=== PATIENT | female | born 1990 | race Hispanic/Latino ===

== ENCOUNTER 2022-07-01 20:47 | Emergency (ER) | payer SELFPAY ==
[~2022-07-01] VITALS: Ht 162.6 cm; Wt 84.4 kg
[2022-07-01] MEDS ORDERED: AZITHROMYCIN 250 MG TAB PO ONE (21:45)
[2022-07-01] MEDS ORDERED: CEFTRIAXONE 500 MG VIAL IM ONE (21:45)
[2022-07-01] MEDS ORDERED: AZITHROMYCIN 250 MG TAB ONE (21:51)
[2022-07-01] MEDS ORDERED: CEFTRIAXONE 500 MG VIAL ONE (21:51)
[2022-07-01] MEDS ORDERED: VALTREX1000 MG PO (21:57)
[2022-07-01] MEDS ORDERED: DIFLUCAN150 MG PO (21:59)
== END 2022-07-01 22:14 | disposition home or self-care (01) ==
LOC: FSED 20:53
DX: B37.3 Candidiasis of vulva and vagina (principal); A60.00 Herpesviral infection of urogenital system, unspecified; E10.9 Type 1 diabetes mellitus without complications
CPT/HCPCS: 81003; 81025; 99283; J0696

== ENCOUNTER 2023-08-09 18:46 | Emergency (ER) | payer OTHER ==
[~2023-08-09] VITALS: Ht 162.6 cm; Wt 79.8 kg
[~2023-08-09 18:46] MED LIST: ATORVASTATIN CA20 MG PO; CORICIDIN HBP1 EAC3 PO; DIFLUCAN150 MG PO; GLYBURIDE5 MG PO; JANUVIA50 MG PO; LISINOPRIL5 MG PO; METFORMIN HCL500 M2 PO; VALTREX1000 MG PO
[2023-08-09] MEDS ORDERED: ONDANSETRON HCL INJ 2MG/ML 2ML 2 MG/ML VIAL IV STA (19:19)
[2023-08-09] MEDS ORDERED: SODIUM CHLORIDE 0.9% 1000ML 1,000 ML IV SCH (19:30)
[2023-08-09] MEDS ORDERED: ONDANSETRON HCL INJ 2MG/ML 2ML 2 MG/ML VIAL ONE (20:22)
[2023-08-09] MEDS ORDERED: SODIUM CHLORIDE 0.9% 1000ML 1,000 ML ONE (20:23)
[2023-08-09 20:39] LABS: HEMATOCRIT 36.2 % (34.2-44.1); HEMOGLOBIN 12.1 g/dL (12.0-16.0); MEAN CORPUSCULAR HEMOGLOBIN 26.8 pg (28-32); MEAN CORPUSCULAR HGB CONC 33.4 g/dL (31-35); MEAN CORPUSCULAR VOLUME 80.1 fL (81-99); PLATELET COUNT 401 x10e3/uL (140-360); RED BLOOD COUNT 4.52 x10e6/uL (3.6-5.1); RED CELL DISTRIBUTION WIDTH 13.6 % (11.7-14.4)
[2023-08-09 21:07] LABS: ALBUMIN 4.1 g/dL (3.5-5.0); ALBUMIN/GLOBULIN RATIO 1.2 (0.8-2.0); ANION GAP 13.9 mmol/L (8-16); CREATININE, SERUM 0.65 mg/dL (0.57-1.11); POTASSIUM 3.9 mmol/L (3.5-5.1)
[2023-08-09 21:18] LABS: EOSINOPHILS % (MANUAL) 1 % (0-7); LYMPHOCYTES % (MANUAL) 47 % (19-48); NEUTROPHILS % (MANUAL) 52 % (40-74); PLATELET ESTIMATE ADEQUATE; PLATELET MORPHOLOGY COMMENT NORMAL; RBC MORPHOLOGY COMMENT NORMAL
[2023-08-09] MEDS ORDERED: ONDANSETRON ODT4 MG PO (22:05)
[2023-08-09 22:12] VITALS: BP 118/76; PULSE 92; RESP 18; TEMP 98; O2SAT 100
== END 2023-08-09 22:12 | disposition home or self-care (01) ==
LOC: FSED 18:58
DX: R11.2 Nausea with vomiting, unspecified (principal); R19.7 Diarrhea, unspecified; E86.0 Dehydration; R63.0 Anorexia; I10 Essential (primary) hypertension; E10.9 Type 1 diabetes mellitus without complications; E78.5 Hyperlipidemia, unspecified; K21.9 Gastro-esophageal reflux disease without esophagitis
CPT/HCPCS: 36415; 80048; 80053; 80076; 81003; 81025; 85007; 85027; 96374; 99283; J2405; J7030

== ENCOUNTER 2024-04-19 16:20 | Emergency (ER) | payer OTHER ==
[~2024-04-19] VITALS: Ht 162.6 cm; Wt 82.8 kg
[~2024-04-19 16:20] MED LIST changes: +ACETAMINOPHEN325 M1 PO; +BROMFED DM COU118 ML PO; +CEFDINIR300 MG PO; +DIFLUCAN100 MG PO; +JARDIANCE10 MG PO; +MACRODANTIN100 MG PO; +ONDANSETRON ODT4 MG PO; +OZEMPIC1 MG/0.71
[2024-04-19 17:17] VITALS: PULSE 93; RESP 18; TEMP 98.1; O2SAT 98
[2024-04-19] MEDS ORDERED: OFLOXACIN5 ML OP (17:32)
[2024-04-20] MEDS ORDERED: TOBRAMYCIN SULFA5 ML OS (09:55)
== END 2024-04-19 18:07 | disposition home or self-care (01) ==
LOC: FSED 16:46
DX: H10.9 Unspecified conjunctivitis (principal); I10 Essential (primary) hypertension; E10.9 Type 1 diabetes mellitus without complications; E78.5 Hyperlipidemia, unspecified; K21.9 Gastro-esophageal reflux disease without esophagitis
CPT/HCPCS: 99283

== ENCOUNTER 2024-08-18 13:55 | Emergency (ER) | payer SELFPAY ==
[~2024-08-18] VITALS: Ht 162.6 cm; Wt 82.6 kg
[~2024-08-18 13:55] MED LIST changes: +OFLOXACIN5 ML OP; +TOBRAMYCIN SULFA5 ML OS
[2024-08-18] MEDS: INSULIN REGULAR, HUMAN 100 UNIT/1 ML IV ONE (15:45)
[2024-08-18] MEDS: SODIUM CHLORIDE 0.9% 1000ML 1,000 ML IV SCH (15:47)
[2024-08-18 16:20] VITALS: PULSE 71; RESP 18; TEMP 98.3
[2024-08-18 17:13] VITALS: BP 129/84; PULSE 74; RESP 18; TEMP 98.6; O2SAT 99
== END 2024-08-18 16:20 | disposition left against medical advice (07) ==
LOC: FSED 14:06
DX: O20.0 Threatened abortion (principal); E11.65 Type 2 diabetes mellitus with hyperglycemia; I10 Essential (primary) hypertension; Z11.52 Encounter for screening for COVID-19
CPT/HCPCS: 0223U; 76801; 76817; 80053; 81003; 85025; 87400; 99284; J7030

== ENCOUNTER 2024-12-04 09:10 | Emergency (ER) | payer OTHER ==
[~2024-12-04] VITALS: Ht 162.6 cm; Wt 82.6 kg
[2024-12-04 09:12] VITALS: PULSE 84; RESP 15; TEMP 98.1; O2SAT 98
[2024-12-04] MEDS: TRAMADOL HCL 50 MG TAB PO ONE (09:54)
[2024-12-04] MEDS ORDERED: CIPROFLOX-DEXA7.5 ML OT (10:46)
[2024-12-04] MEDS ORDERED: AUGMENTIN 500-1 EACH PO (10:47)
== END 2024-12-04 11:00 | disposition home or self-care (01) ==
LOC: FSED 09:20
DX: R51.9 Headache, unspecified (principal); H60.91 Unspecified otitis externa, right ear; I10 Essential (primary) hypertension; E10.9 Type 1 diabetes mellitus without complications; E78.5 Hyperlipidemia, unspecified; K76.9 Liver disease, unspecified; K21.9 Gastro-esophageal reflux disease without esophagitis
CPT/HCPCS: 70450; 81025; 99284

== ENCOUNTER 2025-03-19 14:32 | Emergency (ER) | payer OTHER ==
[~2025-03-19] VITALS: Ht 162.6 cm; Wt 85.3 kg
[~2025-03-19 14:32] MED LIST changes: +AUGMENTIN 500-1 EACH PO; +CIPROFLOX-DEXA7.5 ML OT
[2025-03-19] MEDS: TETRACAINE HCL 0.5% OPTH SOLN 4 ML BTL OS ONE (15:23)
[2025-03-19] MEDS ORDERED: CYCLOBENZAPRINE5 MG PO (16:43)
[2025-03-19] MEDS ORDERED: ULTRAM 50MG50 MG PO (17:53)
[2025-03-19 18:00] VITALS: PULSE 93; RESP 17; TEMP 98.6; O2SAT 100
== END 2025-03-19 18:00 | disposition home or self-care (01) ==
LOC: FSED 14:37
DX: H53.9 Unspecified visual disturbance (principal); E10.65 Type 1 diabetes mellitus with hyperglycemia; R94.4 Abnormal results of kidney function studies; I10 Essential (primary) hypertension; K76.9 Liver disease, unspecified; E78.5 Hyperlipidemia, unspecified; K21.9 Gastro-esophageal reflux disease without esophagitis
CPT/HCPCS: 70450; 71046; 80053; 81003; 81025; 85025; 99283